=== PATIENT | female | born 1965 | race Caucasian/White ===

== ENCOUNTER 2023-11-09 05:53 | Day surgery (SDC) | payer OTHER, SELFPAY ==
[2023-10-28 08:35] VITALS: BMI 34.2
[2023-10-29 14:22] VITALS: BMI 33.3
--- NOTE | 2023-11-08 12:37 | PM.HPGS ---
History of Present Illness History of Present Illness Consent: Risks, benefits, and alternatives have been discussed and questions answered. Patient agrees to proceed with procedure. Chief complaint: Gerd w/o Esophagitis, Dysphagia Review of Systems Review of Systems: All systems reviewed & are unremarkable except as noted in HPI and below PMFSH Past Medical History Medical History Anxiety Back pain Biliary dyskinesia Chest pain Cholecystectomy planned Dysphagia GERD (gastroesophageal reflux disease) Hyperlipemia Hypertension Obesity (BMI 30.0-34.9) GILMER (obstructive sleep apnea) Surgical History Surgical History History of cardiac cath Social History Social History Smoking status: Never smoker Alcohol intake: never Substance use: never Substance use type: does not use Living arrangements: with family Spiritual care concerns: No Meds Home Medications and Allergies Home Medications Medication Instructions Recorded Confirmed Type buspirone 7.5 mg tablet 7.5 mg PO BID 10/22/23 11/09/23 History ezetimibe 10 mg tablet 10 mg PO DAILY 10/22/23 11/09/23 History hydrochlorothiazide 12.5 mg tablet 12.5 mg PO DAILY 10/22/23 11/09/23 History lisinopril 10 mg tablet 10 mg PO DAILY 10/22/23 11/09/23 History meloxicam 15 mg tablet 15 mg PO DAILY 10/22/23 11/09/23 History omeprazole 20 mg capsule,delayed 20 mg PO DAILY 3 months #90 caps 10/22/23 11/09/23 Rx release Allergies Allergy/AdvReac Type Severity Reaction Status Date / Time fentanyl AdvReac Intermediate Hypotension Verified 11/09/23 06:14 Exam Const: General: alert Orientation/consciousness: patient oriented x3 Resp: Auscultation: clear to auscultation bilaterally Cardio: Rhythm: regular rhythm GI: GI Palp: Yes Soft to palpation and No Tenderness to palpation present (GI) Neuro: General: patient oriented x3 Assessment and Plan Assessment and plan (1) Dysphagia: Code(s): R13.10 - Dysphagia, unspecified Status: Acute Assessment and Plan: EGD with possible biopsy or dilatation or cautery.
--- NOTE | 2023-11-08 13:46 | P.PNAN_ITS ---
Anes - Initial Pre Proc Eval Procedure: Operation Date: 11/09/23 07:30 Proposed Procedures p Esophagogastroduodenoscopy - Hosea Santos MD Date/Time: 11/08/23 13:46 Surgeon: Hosea Santos MD Pre Op Diagnosis: Gerd w/o Esophagitis, Dysphagia Patient Data Age: 58 Gender: M Height: 1.63 m Weight: 88 kg Allergies Allergy/AdvReac Type Severity Reaction Status Date / Time fentanyl AdvReac Intermediate Hypotension Verified 11/09/23 06:14 Home Medications Medication Instructions Recorded Confirmed Type buspirone 7.5 mg tablet 7.5 mg PO BID 10/22/23 11/09/23 History ezetimibe 10 mg tablet 10 mg PO DAILY 10/22/23 11/09/23 History hydrochlorothiazide 12.5 mg tablet 12.5 mg PO DAILY 10/22/23 11/09/23 History lisinopril 10 mg tablet 10 mg PO DAILY 10/22/23 11/09/23 History meloxicam 15 mg tablet 15 mg PO DAILY 10/22/23 11/09/23 History omeprazole 20 mg capsule,delayed 20 mg PO DAILY 3 months #90 caps 10/22/23 11/09/23 Rx release Patient hx anesthesia problems: none Family hx anesthesia problems: none Results Review: All pre-operative results and documents have been reviewed as part of the pre- operative evaluation. [facility] Past Medical History Medical History (Updated 11/08/23 @ 13:47 by Gene Muniz DO) Anxiety Back pain Biliary dyskinesia Chest pain Cholecystectomy planned Dysphagia GERD (gastroesophageal reflux disease) Hyperlipemia Hypertension Obesity (BMI 30.0-34.9) GILMER (obstructive sleep apnea) Surgical History Surgical History History of cardiac cath Social History Social History Smoking status: Never smoker Alcohol intake: never Substance use: never Substance use type: does not use Living arrangements: with family Spiritual care concerns: No Anes - Eval Final PreProcedure Day of Procedure 11/08/23 13:46 Patient weight: obese Heart: regular rate and rhythm Lungs: clear to auscultation Airway: Mallampati scale class III Neurological: alert and oriented Last oral intake: >/= 8 hours ASA classification: III Emergent: no Anesthetic plan: proceed Anesthesia type and monitoring: general GIVS and standard monitoring Results Review: All pre-operative results and documents have been reviewed as part of the pre- operative evaluation. Informed Consent: The patient's anesthetic plan and its attendant risks and benefits were discussed with the patient/family/POA. Questions were solicited and answers provided to the satisfaction of the patient/family/POA.
[2023-11-09] MEDS: LACTATED RINGERS 1,000 ML 150 ML IV CONT (06:30)
[2023-11-09 06:41] VITALS: BP 143/90; PULSE 57; RESP 18; TEMP 36.4; O2SAT 97
[2023-11-09 07:40] VITALS: BP 118/78; PULSE 82; RESP 18; O2SAT 94
[2023-11-09 07:50] VITALS: BP 112/78; PULSE 64; RESP 18; O2SAT 96
[2023-11-09 08:00] VITALS: BP 153/80; PULSE 74; RESP 18; O2SAT 98
--- NOTE | 2023-11-09 09:53 | WPDANESPN ---
Anes - Prog Note Post-Op Date/Time: 11/09/23 09:53 Cardiovascular status: normal Respiratory status: normal Airway patency: baseline Mental status: baseline Post-Op hydration status: normal Vital Signs: Last Vital Signs Temp 36.4 C 11/09/23 06:41 Pulse 74 11/09/23 08:00 Resp 18 11/09/23 08:00 BP 153/80 H 11/09/23 08:00 Pulse Ox 98 11/09/23 08:00 O2 Del Method Room Air 11/09/23 08:00 Pain Score (VAS): 0 I/O: Intake & Output 11/08/23 11/09/23 11/09/23 23:59 07:59 15:59 Intake Total 150 100 Balance 150 100 Post-procedural complaints: none Patient Feedback: Patient satisfied with anesthetic care. Other Findings: Patient vital signs back to baseline. Patient denies nausea and vomiting. Patient's pain under control. Patient OK for discharge.
== END 2023-11-09 08:20 | disposition home or self-care (01) ==
PROVIDERS: Visit Provider Internal Medicine Gastroenterology
PROC: 0DJ08ZZ Inspection of Upper Intestinal Tract, Via Natural or Artificial Opening Endoscopic (ICD-10-PCS; CPT 43235; principal; 2023-11-09 07:30)
DX: R13.19 Other dysphagia (principal); K22.2 Esophageal obstruction; K44.9 Diaphragmatic hernia without obstruction or gangrene
CPT/HCPCS: 43249; 43239

== ENCOUNTER 2023-11-09 07:45 | Outpatient (NON) | payer OTHER, SELFPAY | END 2023-11-09 07:46 | disposition home or self-care (01) | PROVIDERS: Visit Provider Internal Medicine Gastroenterology | DX: K20.90 Esophagitis, unspecified without bleeding (principal) | CPT/HCPCS: 88305 ==

== ENCOUNTER 2024-02-23 08:06 | Outpatient (CLI) | payer OTHER, SELFPAY ==
--- NOTE | ~2024-02-23 | XR_ITS ---
MODIFIED ESOPHAGRAM HISTORY: Dysphagia. TECHNIQUE: Modified barium esophagram was performed on 02/23/2024. I administered fluoroscopy and per formed the exam with speech pathologist. Patient was seated for lateral fluoroscopic imaging for ing estion of thin liquids, pudding, solids and quantified amounts, followed by thin liquids in uncontrol led amounts. This was recorded on tape. A single fluoroscopic spot image was also recorded. The DAP f or this procedure was 0.628 Gycm2. The amount of fluoroscopy time used during this procedure was 0.8 minutes. FINDINGS: Oral stage: Adequate function. Pharyngeal stage: Adequate function. Cervical/esophageal stage: Adequate function. IMPRESSION: Patient tolerated regular consistency oral feedings in the upright position. Please kuldeep elate with speech pathologist findings and specific feeding recommendations. Reviewed, dictated and finalized at location A. CTOR STAGE IMPRESSION: Patient tolerated regular consistency oral feedings in the upright position. Please correlate with speech pathologist findings and specific feedi ng recommendations.
--- NOTE | 2024-02-23 10:38 | REHSTMBS ---
Assessment and note entered by Rox Cutler, RECEIVING OPERATOR Modified Barium Swallow Evaluation Feeding Type Recommended Oral Food Consistency Regular, Level 7 Liquid Consistency Thin (0) ST Clinical Summary MODIFIED BARIUM SWALLOW STUDY This patient was seen for a Modified Barium Swallow study at the request of her physician. Patient reports a history of choking on solids and liquids, randomly. She stated that she underwent an EGD with balloon dilation in December, which she stated was helpful but did not prevent choking. She stated that she is sure she is aspirating when she gets choked. Today the patient was viewed in the lateral position to the level of C5/C6. Patient was presented with uncontrolled thin liquid per cup and per straw, pudding mixed with semi-solid contrast medium, and then cracker piece and fruit cocktail pieces both coated with the semi-solid mixture. She exhibited quick swallows with no evidence of penetration/aspiration and no significant risk for aspiration. Results indicate swallowing skills are within normal limits. She may remain on a Regular Diet with Regular Liquids. Patient was instructed in the use of head flexion for use with liquids, solids, and medications. She voiced and demonstrated understanding of how head flexion works and when to use it. She was instructed to call this hospital/speech department if she should have any additional questions. Thank you for this referral.
== END 2024-02-23 08:07 | disposition home or self-care (01) ==
LOC: ANHIMG 08:09
PROVIDERS: Visit Provider Nurse Practitioner Family
DX: R13.10 Dysphagia, unspecified (principal)
CPT/HCPCS: 92611